=== PATIENT | male | born 1960 | race Caucasian/White ===

== ENCOUNTER 2018-06-21 00:20 | Outpatient (CLI) | payer MEDICARE | END 2018-06-21 23:59 | disposition home or self-care (01) | LOC: DIABETIC 00:20 | PROVIDERS: ATTEND Family Medicine | DX: E11.9 Type 2 diabetes mellitus without complications (principal); Z88.8 Allergy status to other drugs, medicaments and biological substances; Z88.5 Allergy status to narcotic agent | CPT/HCPCS: G0108 ==